=== PATIENT | female | born 1955 | race Caucasian/White ===

== ENCOUNTER → 2019-02-10 14:03 | Outpatient (CLI) | payer BC, SELFPAY ==
--- NOTE | 2019-02-10 14:05 | DI.RAD.S_ITS ---
PROCEDURE: XR CERVICAL SPINE 4V OR 5V INDICATIONS: neck pain TECHNIQUE: 5 views of the cervical spine acquired. COMPARISON: None. FINDINGS: Bones: No fractures or dislocations to the T1 level. Oblique images demonstrate no bony foraminal stenoses. Degenerative disc disease is moderate at C3-4 and moderately severe at C5-6 and C6-7. Moderate bilaterally symmetric foraminal stenosis is present at these 3 levels. Soft tissues: No prevertebral soft tissue swelling. IMPRESSION: No trauma. Degenerative disc disease is moderate to moderately severe over the cervical spine and best seen at C3-4, C5-6, and C6-7. The oblique views show moderate foraminal stenosis at C3-4, C5-6, and C6-7 symmetric bilaterally. Dictated by: Facundo Rand M.D. on 02/10/2019 at 15:06 Approved by: Facundo Rand M.D. on 02/10/2019 at 15:08
--- NOTE | 2019-02-10 14:05 | DI.RAD.S_ITS ---
PROCEDURE: XR LUMBAR SPINE MIN 4V INDICATIONS: back pain TECHNIQUE: 5 views were obtained to include both obliques. COMPARISON: [facility], RF, LUMBAR TRANSLAMINAR, 05/31/2017, 12:40. [facility], RF, LUMBAR FACET, 02/15/2017, 12:26. [facility], CR, SPINE LUMB MIN 4VW, 01/21/2017, 15:51. [facility] [place], CR, SPINE LUMB MIN 4VW, 09/01/2016, 16:13. FINDINGS: Bones: On nonrib-bearing vertebrae are present. There is normal bony alignment. No vertebral body compression fractures. No suspicious bony lesions. Quality of visualization is limited by very large body habitus. Note is made of mild degenerative disc disease at the L4-5 level where moderate such degeneration can be seen at L5-S1 there is a moderate degree of degenerative disc disease also. 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 No significant subluxation is associated. Soft tissues: Overlying bowel gas pattern is normal. No suspicious soft tissue calcifications. Oblique images: No pars defects. IMPRESSION: Degenerative disc disease is moderate over the lower lumbosacral spine, without evidence of prior fracture or development of subluxation. Dictated by: Facundo Rand M.D. on 02/10/2019 at 15:04 Approved by: Facundo Rand M.D. on 02/10/2019 at 15:05
--- NOTE | 2019-02-10 14:05 | DI.RAD.S_ITS ---
PROCEDURE: XR KNEE STANDING BI INDICATIONS: bilateral knee pain TECHNIQUE: 3 views of the left knee, and 3 views of the right knee. COMPARISON: None. FINDINGS: Bones: No acute fractures or dislocations. Patellar alignment is normal on the sunrise view. No suspicious bony lesions. Joint spaces appear normal with weightbearing. Soft tissues: No knee joint effusions. No suspicious soft tissue calcification. IMPRESSION: Moderate medial compartment joint space narrowing, no fracture or traumatic subluxation is found. Dictated by: Facundo Rand M.D. on 02/10/2019 at 15:05 Approved by: Facundo Rand M.D. on 02/10/2019 at 15:06
[2019-02-10 15:00] LABS: Add Manual Diff / Slide Review NO; Basophils Absolute Auto 100 /uL (0-100); Basophils Percent Auto 0.6 % (0-2); Eosinophils Absolute Auto 100 /uL (0-450); Eosinophils Percent Auto 0.8 % (2-4); Hematocrit 44.2 % (36-46); Hemoglobin 14.8 g/dL (12.0-16.0); Lymphocytes Absolute Auto 1700 /uL (1100-4500); Lymphocytes Percent Auto 19.2 % (25-40); Mean Corpuscular HGB Conc 33.6 % (30-36); Mean Corpuscular Hemoglobin 28.5 PG (26-34); Mean Corpuscular Volume 85.1 fL (80-100); Monocytes Absolute Auto 600 /uL (0-900); Monocytes Percent Auto 6.6 % (3-14); Neutrophils Absolute Auto 6600 /uL (1500-7000); Neutrophils Percent Auto 72.8 % (50-75); Platelet Count 329 X10^3/uL (150-400); Red Blood Cell Count 5.19 X10^6/uL (4.0-5.2); Red Cell Distribution Width 12.9 % (11.6-14.8); White Blood Cell Count 9.1 X10^3/uL (4.5-11.0)
[2019-02-10 15:18] LABS: Erythrocyte Sedimentation Rate 42 MM/HR (0-20)
[2019-02-10 15:42] LABS: Alanine Aminotransferase 18 IU/L (9-52); Albumin 4.9 g/dL (3.5-5.0); Albumin Globulin Ratio 1.4 (1.0-2.8); Alkaline Phosphatase 100 U/L (38-126); Aspartate Aminotransferase 36 IU/L (14-36); BUN Creatinine Ratio 22.5 (6-22); Bilirubin Total 0.4 mg/dL (0.2-1.3); Blood Urea Nitrogen 18 mg/dL (7-17); C-Reactive Protein Quant 1.7 mg/dL (<1.0); Calcium 10.1 mg/dL (8.4-10.2); Carbon Dioxide 28 mmol/L (22-32); Chloride 100 mmol/L (98-107); Estimated Glomerular Filt Rate > 60.0 mL/min (>60); Globulin 3.4 g/dL (1.7-4.1); Glucose 109 mg/dL (80-110); HEMOLYSIS < 15 (0-50); Potassium 3.9 mmol/L (3.4-5.1); Sodium 139 mmol/L (137-145); Total Protein 8.3 g/dL (6.3-8.2)
[2019-02-10 15:56] LABS: Vitamin D 25 Hydroxy (D3) 31.3 ng/mL (30.0-100.0)
[2019-02-12 17:57] LABS: ANA Pattern Speckled; ANA Screen, IFA Positive (Negative)
== END ==
PROVIDERS: PCP Internal Medicine; Visit Provider Physical Medicine & Rehabilitation
DX: M50.11 Cervical disc disorder with radiculopathy, high cervical region (principal); M48.02 Spinal stenosis, cervical region; M54.9 Dorsalgia, unspecified; M25.562 Pain in left knee; M25.561 Pain in right knee; M47.817 Spondylosis without myelopathy or radiculopathy, lumbosacral region; M47.816 Spondylosis without myelopathy or radiculopathy, lumbar region; M51.36 Other intervertebral disc degeneration, lumbar region; M51.37 Other intervertebral disc degeneration, lumbosacral region
CPT/HCPCS: 36415; 72050; 72110; 73565; 80053; 82306; 84443; 85025; 85651; 86038; 86140

== ENCOUNTER 2024-10-17 09:38 | Emergency (ER) | payer MEDICARE, BC, SELFPAY ==
[2024-10-17] VITALS (14 sets, daily range): BP systolic 141–176; BP diastolic 64–79; PULSE 88–100; RESP 11–37; TEMP 37; O2SAT 97–100; BMI 48.6
--- NOTE | 2024-10-17 09:48 | DI.RAD.S_ITS ---
PROCEDURE: XR CHEST 1V INDICATIONS: chest pain TECHNIQUE: One view of the chest was acquired. COMPARISON: None. FINDINGS: Surgical changes and devices: None. Lungs and pleura: Lungs are clear. No pleural effusions or pneumothorax. Mediastinum: Mediastinal contours appear normal. Heart size is normal. Bones and chest wall: No suspicious bony lesions. Overlying soft tissues appear unremarkable. IMPRESSION: No acute cardiopulmonary pathology. Dictated by: Levar Bain M.D. on 10/17/2024 at 10:21 Approved by: Levar Bain M.D. on 10/17/2024 at 10:21
--- NOTE | 2024-10-17 09:54 | EKG_ITS ---
[address] [address] Test Date: 2024-10-17 Pat Name: Nuzhat Puentes Department: Room: Gender: Female Pathology Technician: RAMSES : 1955 Requested By: Order Number: [id number] Reading MD: Cheng Alcantara Measurements Intervals [place] Rate: 90 P: 59 CO: 160 QRS: -2 QRSD: 94 T: 83 QT: 354 QTc: 433 Interpretive Statements Normal sinus rhythm Minimal voltage criteria for LVH, may be normal variant ( Grant product ) Inferior infarct , age undetermined Possible Anterior infarct , age undetermined Electronically Signed On 10-17-2024 17:51:37 PST by Cheng Alcantara
[2024-10-17 10:32] LABS: INR 1.1 (0.9-1.3); Prothrombin Time 12.1 SECONDS (9.4-12.5)
[2024-10-17 10:35] LABS: PTT Partial Thromboplastin Tim 37 SECONDS (25.1-36.5)
[2024-10-17 10:37] LABS: Alanine Aminotransferase 23 IU/L (<35); Albumin 4.3 g/dL (3.5-5.0); Albumin Globulin Ratio 1.6 (1.0-2.8); Alkaline Phosphatase 104 U/L (38-126); Aspartate Aminotransferase 29 IU/L (14-36); BUN Creatinine Ratio 32.2 (6-22); Bilirubin Total 0.4 mg/dL (0.2-1.3); Blood Urea Nitrogen 29 mg/dL (7-17); Carbon Dioxide 29 mmol/L (22-32); Chloride 98 mmol/L (98-107); Creatine Kinase 40 U/L (30-135); Estimated Glomerular Filt Rate > 60 mL/min (>60); Globulin 2.7 g/dL (1.7-4.1); Glucose 124 mg/dL (80-110); HEMOLYSIS < 15 (0-50); Lipase 438 U/L (23-300); Magnesium 1.9 mg/dL (1.6-2.3); Potassium 3.8 mmol/L (3.4-5.1); Sodium 133 mmol/L (137-145)
[2024-10-17 10:38] LABS: Add Manual Diff / Slide Review NO; Basophils Absolute Auto 100 /uL (0-100); Eosinophils Absolute Auto 700 /uL (0-450); Eosinophils Percent Auto 6.8 % (2-4); Hematocrit 37.7 % (36-46); Hemoglobin 12.8 g/dL (12.0-16.0); Lymphocytes Absolute Auto 1200 /uL (1100-4500); Lymphocytes Percent Auto 10.8 % (25-40); Mean Corpuscular Hemoglobin 28.9 PG (26-34); Mean Corpuscular Volume 84.9 fL (80-100); Monocytes Absolute Auto 600 /uL (0-900); Monocytes Percent Auto 5.8 % (3-14); Neutrophils Absolute Auto 8100 /uL (1500-7000); Neutrophils Percent Auto 75.6 % (50-75); Platelet Count 270 X10^3/uL (150-400); Red Blood Cell Count 4.44 X10^6/uL (4.0-5.2); Red Cell Distribution Width 13.1 % (11.6-14.8); White Blood Cell Count 10.8 X10^3/uL (4.5-11.0)
--- NOTE | 2024-10-17 10:42 | EKG_ITS ---
[place] [address] [address] [place] [id number] Test Date: 2024-10-17 Pat Name: Nuzhat Puentes Department: Room: Gender: Female Foot Tender: FREEMAN : 1955 Requested By: Order Number: [id number] Reading MD: Cheng Alcantara Measurements Intervals [place] Rate: 92 P: 56 TX: 168 QRS: -41 QRSD: 136 T: 89 QT: 390 QTc: 482 Interpretive Statements Normal sinus rhythm Left axis deviation Left bundle branch block Electronically Signed On 10-17-2024 17:51:42 PST by Cheng Alcantara
[2024-10-17 10:48] LABS: NT-proBNP (BNP-Adult 18+) 53 pg/mL (<125); Troponin I < 0.012 ng/mL (0.01-0.034)
--- NOTE | 2024-10-17 10:48 | ED_ITS ---
HPI - Chest Pain General Chief Complaint: Chest Pain Stated Complaint: chest px Time Seen by Provider: 10/17/24 10:48 Source: patient Mode of arrival: Ambulatory Limitations: no limitations History of Present Illness HPI narrative: 69-year-old female without history of known coronary artery disease, has had a previous concern about left bundle branch block on some prior EKG, saw vat house supervisor Dr. Mcnulty in follow up and this was apparently not confirmed, unclear if she has intermittent left bundle branch block, this morning had some shortness of breath without chest pain, also some nasal congestion, both nasal congestion and the shortness of breath seemed to go away at the same time as she arrived here. Currently without any chest pain or shortness of breath symptoms. Feels improved. No fevers or chills. Denies any swelling or pain to her legs. Denies history of blood clots to legs or lungs. Related Data Home Medications Medication Instructions Recorded Confirmed capsaicin 0.025 % topical patch 1 patch topical BID PRN 02/10/19 03/13/19 (Salonpas-Hot) ibuprofen-diphenhydramine citrate 1 cap PO BEDTIME 02/10/19 03/13/19 200 mg-38 mg tablet (Advil PM) lisinopril 5 mg tablet 5 mg PO DAILY 02/10/19 03/13/19 magnesium hydroxide 400 mg (170 mg mg PO 02/10/19 03/13/19 magnesium) chewable tablet Allergies Allergy/AdvReac Type Severity Reaction Status Date / Time No Known Drug Allergies Allergy Verified 10/17/24 09:48 Patient History Social History Smoking Status: Unknown if ever smoked Smoking Status: Unknown if ever smoked Exam Narrative Exam Narrative: GENERAL: Well-developed patient, in mild distress. HEAD: Atraumatic. Normocephalic. EYES: Pupils equal round and reactive. Extraocular motions intact. No scleral icterus. No injection or drainage. ENT: Nose without bleeding, purulent drainage. Throat without erythema, tonsillar hypertrophy or exudate. Airway patent. NECK: Trachea midline. Non tender CARDIOVASCULAR: Regular rate and rhythm without murmurs, gallops, or rubs. RESPIRATORY: Clear to auscultation. Breath sounds equal bilaterally. No wheezes, rales, or rhonchi. GASTROINTESTINAL: Abdomen soft, non-tender, nondistended. EXTREMITIES: No edema or joint tenderness. BACK: Nontender without deformity or crepitance. No flank tenderness. NEURO: AOx3. Motor functions grossly nonfocal SKIN: No rash or erythema of visible areas Initial Vital Signs Initial Vital Signs: Vital Signs Temperature 98.6 F 10/17/24 09:40 Pulse Rate 96 H 10/17/24 09:40 Respiratory Rate 15 10/17/24 09:40 Blood Pressure 176/79 H 10/17/24 09:40 Pulse Oximetry 100 10/17/24 09:40 Oxygen Delivery Method Room Air 10/17/24 09:40 Course Orders Ordered: ED Orders 10/17/24 10:42 EKG-12 Lead Routine 10/17/24 12:05 Trop I [Troponin I] Stat Discontinued Medications Aspirin (Aspirin 81 Mg Chew Tab) 324 mg PO NOW ONE Stop: 10/17/24 09:49 Last Admin: 10/17/24 11:16 Dose: Not Given Documented By: AB Vital Signs Vital signs: Vital Signs - 8 hr 10/17/24 11:10 10/17/24 11:12 10/17/24 11:12 Pulse Rate 96 H 94 H Respiratory Rate 22 Blood Pressure 155/73 H Pulse Oximetry 98 99 Oxygen Delivery Method 10/17/24 11:30 10/17/24 11:30 10/17/24 12:00 Pulse Rate 100 H 98 H Respiratory Rate 24 26 H Blood Pressure 164/71 H Pulse Oximetry 99 98 Oxygen Delivery Method Room Air 10/17/24 12:01 10/17/24 12:01 10/17/24 12:30 Pulse Rate 98 H 96 H Respiratory Rate 37 H 18 Blood Pressure 141/67 H Pulse Oximetry 97 99 Oxygen Delivery Method Room Air Room Air 10/17/24 12:56 10/17/24 12:56 10/17/24 13:00 Pulse Rate 95 H 96 H Respiratory Rate 19 Blood Pressure 155/67 H Pulse Oximetry 99 99 Oxygen Delivery Method 10/17/24 13:00 Pulse Rate Respiratory Rate Blood Pressure 143/64 H Pulse Oximetry Oxygen Delivery Method MDM - Chest Pain Lab Data Attestation: I reviewed the patient's lab results. Lab results narrative: White blood cell count 38830, hemoglobin 12.8, platelets [id number] adequate. Sodium 133 mildly low, potassium normal, BUN 29 with creatinine 0.9, glucose 124. Lipase 438 mildly elevated. Liver functions unremarkable. 10/17/24 10:00 10/17/24 10:00 Labs: Lab Results 10/17/24 10/17/24 Range/Units 10:00 12:05 WBC 10.8 (4.5-11.0) X10^3/uL RBC 4.44 (4.0-5.2) X10^6/uL Hgb 12.8 (12.0-16.0) g/dL Hct 37.7 (36-46) % MCV 84.9 (80-100) fL MCH 28.9 (26-34) PG MCHC 34.0 (30-36) % RDW 13.1 (11.6-14.8) % Plt Count 270 (150-400) X10^3/uL Neut % (Auto) 75.6 H (50-75) % Lymph % (Auto) 10.8 L (25-40) % [place] % (Auto) 5.8 (3-14) % Eos % (Auto) 6.8 H (2-4) % Baso % (Auto) 1.0 (0-2) % Neut # (Auto) 8100 H (6992-9385) /uL Lymph # (Auto) 1200 (3544-8258) /uL [place] # (Auto) 600 (0-900) /uL Eos # (Auto) 700 H (0-450) /uL Baso # (Auto) 100 (0-100) /uL PT 12.1 (9.4-12.5) SECONDS INR 1.1 (0.9-1.3) APTT 37 H (25.1-36.5) SECONDS Sodium 133 L (137-145) mmol/L Potassium 3.8 (3.4-5.1) mmol/L Chloride 98 (98-107) mmol/L Carbon Dioxide 29 (22-32) mmol/L BUN 29 H (7-17) mg/dL Creatinine 0.90 (0.52-1.04) mg/dL Estimated GFR > 60 (>60) mL/min BUN/Creatinine Ratio 32.2 H (6-22) Glucose 124 H (80-110) mg/dL Calcium 10.0 (8.4-10.2) mg/dL Magnesium 1.9 (1.6-2.3) mg/dL Total Bilirubin 0.4 (0.2-1.3) mg/dL AST 29 (14-36) IU/L ALT 23 (<35) IU/L Alkaline Phosphatase 104 (38-126) U/L Total Creatine Kinase 40 (30-135) U/L Troponin I < 0.012 < 0.012 (0.01-0.034) ng/mL NT-Pro-B Natriuret Pep 53 (<125) pg/mL Total Protein 7.0 (6.3-8.2) g/dL Albumin 4.3 (3.5-5.0) g/dL Globulin 2.7 (1.7-4.1) g/dL Albumin/Globulin Ratio 1.6 (1.0-2.8) Lipase 438 H (23-300) U/L Imaging Data Chest x-ray: Radiologist's Impression: [address] [address] XRay Report Signed Patient: Nuzhat Puentes MR#: [id number] : 1955 Acct:[id number] Age/Sex: 69 / F Date of Service: 10/17/24 Loc: ED Accession Number: [id number] Procedure: XR chest 1V Ordering Provider: Arian Singh MD PROCEDURE: XR CHEST 1V INDICATIONS: chest pain TECHNIQUE: One view of the chest was acquired. COMPARISON: None. FINDINGS: Surgical changes and devices: None. Lungs and pleura: Lungs are clear. No pleural effusions or pneumothorax. Mediastinum: Mediastinal contours appear normal. Heart size is normal. Bones and chest wall: No suspicious bony lesions. Overlying soft tissues appear unremarkable. IMPRESSION: No acute cardiopulmonary pathology. Dictated by: Levar Bain M.D. on 10/17/2024 at 10:21 Approved by: Levar Bain M.D. on 10/17/2024 at 10:21 ECG Data Attestation: I personally reviewed and interpreted this ECG as follows: Interpretation: 0954, normal sinus rhythm with rate 90, no obvious ST segment elevation or depression changes. NV 160, QRS 94, QTC 433. 1042, normal sinus rhythm with rate 92, left bundle branch block appearance. NV 168, QRS 136, QTC 482. MDM Narrative Medical decision making narrative: 69-year-old female reports history of possible left bundle branch block, concern in the past, apparently not found on a subsequent EKG, unclear if his perhaps intermittent, had shortness of breath this morning along with nasal congestion, after triage she had resolution of her symptoms both nasal congestion and shortness of breath, did not have any chest discomfort. No diaphoresis or nausea. Initial screening EKG normal sinus rhythm, subsequent EKG showed left bundle branch block in context of normal sinus rhythm, on monitor seems to have intermittent wide and narrow complex rhythm, no tachycardia. Patient has no symptoms during these events. Screening troponin negative. We will wait for interval troponin. If negative anticipate follow up with her vat house supervisor Dr. Mcnulty for further evaluation as an outpatient. Chest x-ray unremarkable. Repeat troponin negative. On monitor patient does seem to have wide complex rhythm, no tachycardia. We will consult on-call Cardiology regarding significance of intermittent left bundle branch block that is apparently currently asymptomatic Case discussed with on-call cardiology Dr. Gomez, asymptomatic intermittent left bundle branch block, history of left bundle-branch block in the past, no further workup for now, follow up with your cardiology Dr. Mcnulty as planned. Discharge Plan Departure Patient Disposition: Home Clinical Impression: Shortness of breath, Nasal congestion, Left bundle-branch block, unspecified Activity Restrictions/Additional Instructions: Some shortness of breath this morning that seemed to get better, at about the time that your nasal congestion seemed to get better, if they were related. Chest x-ray without acute changes. Initial EKG showed a narrow complex sinus rhythm, but on the monitor you seemed to develop a wide complex rhythm, repeat EKG showed left bundle branch block. You were not symptomatic with this change in complex. You had had concern about left bundle branch block in the past, had seen your vat house supervisor Dr. Mcnulty who apparently was unable to confirm its presence, this is likely intermittent and seems that it might be asymptomatic. Your blood tests tonight did not show any evidence of the electrolyte disorder, serial blood tests not suggestive of heart attack. Case was discussed tonight with on-call local vat house supervisor Dr. Gomez, who thought that you could be discharged home now with no further workup here, further follow up as an outpatient with your own vat house supervisor. Copies given of your EKGs here to help document the presence of left bundle branch block concern. Continue your chronic regular medications for now. Consider adding 1 oral aspirin daily until further evaluated by your vat house supervisor Dr. Mcnulty. Follow up with your vat house supervisor Dr. Mcnulty. Return to this/nearest emergency department for any change worsening symptoms or any concerns prior Prescriptions: No Action capsaicin [Salonpas-Hot] 0.025 % adhesive patch,medicated 1 patch TOP BID PRN lisinopril 5 mg tablet 5 mg PO DAILY ibuprofen-diphenhydramine cit [Advil PM] 200-38 mg tablet 1 cap PO BEDTIME magnesium hydroxide 400 mg (170 mg) tablet,chewable PO Referrals: Miscellaneous,MD Lissette [Primary Care Provider] - Aline Gomez MD [Physician] - Stand Alone Forms: Patient Portal/API/Survey
[2024-10-17 12:35] LABS: Troponin I < 0.012 ng/mL (0.01-0.034)
== END 2024-10-17 13:18 | disposition home or self-care (01) ==
PROVIDERS: Emergency Provider Emergency Medicine
DX: R06.02 Shortness of breath (principal); R09.81 Nasal congestion; I44.7 Left bundle-branch block, unspecified
CPT/HCPCS: 36415; 71045; 80053; 82550; 83690; 83735; 83880; 84484; 85025; 85610; 85730; 93005; 99284; 99285

== ENCOUNTER 2025-01-10 15:51 | Emergency (ER) | payer BC, MEDICARE, SELFPAY ==
[2025-01-10 15:58] VITALS: BP 177/99; PULSE 123; RESP 14; TEMP 36.6; O2SAT 97; BMI 49.9
[2025-01-10 16:36] LABS: Add Manual Diff / Slide Review NO; Basophils Absolute Auto 100 /uL (0-100); Basophils Percent Auto 0.6 % (0-2); Eosinophils Absolute Auto 100 /uL (0-450); Eosinophils Percent Auto 1.3 % (2-4); Hematocrit 40.3 % (36-46); Hemoglobin 13.5 g/dL (12.0-16.0); Lymphocytes Absolute Auto 1200 /uL (1100-4500); Lymphocytes Percent Auto 10.2 % (25-40); Mean Corpuscular HGB Conc 33.6 % (30-36); Mean Corpuscular Hemoglobin 28.5 PG (26-34); Mean Corpuscular Volume 84.9 fL (80-100); Monocytes Absolute Auto 600 /uL (0-900); Monocytes Percent Auto 4.8 % (3-14); Neutrophils Absolute Auto 9500 /uL (1500-7000); Neutrophils Percent Auto 83.1 % (50-75); Platelet Count 306 X10^3/uL (150-400); Red Blood Cell Count 4.75 X10^6/uL (4.0-5.2); Red Cell Distribution Width 13.1 % (11.6-14.8); White Blood Cell Count 11.4 X10^3/uL (4.5-11.0)
[2025-01-10 16:46] LABS: BUN Creatinine Ratio 24.4 (6-22); Blood Urea Nitrogen 22 mg/dL (7-17); Calcium 10.2 mg/dL (8.4-10.2); Carbon Dioxide 29 mmol/L (22-32); Chloride 98 mmol/L (98-107); Estimated Glomerular Filt Rate > 60 mL/min (>60); Glucose 136 mg/dL (80-110); HEMOLYSIS < 15 (0-50); Potassium 4.4 mmol/L (3.4-5.1); Sodium 135 mmol/L (137-145)
--- NOTE | 2025-01-10 18:16 | ED_ITS ---
HPI - Female Genitourinary General Chief complaint: Vaginal Bleeding Stated complaint: vaginal bleeding post menopause Time Seen by Provider: 01/10/25 18:16 Source: patient Mode of arrival: Ambulatory History of Present Illness HPI Narrative: 69-year-old female without any significant past medical history presents to the emergency department from home for evaluation of postmenopausal vaginal bleeding. She states that she has been 10 years postmenopausal, she states that today she woke up started noticing some very minor cramping and noticed some bright blood spotting, she states that she is not actively bleeding just having some intermittent cramps, she rates it /, she states that she does have a history of fibroids, she states that she has not on any progesterone. Not on any blood thinners. She states that she went to walk-in clinic instructed come into the ED for further evaluation treatment. At time of evaluation patient stating that she has not having any active bleeding only mild pelvic cramping no radiation nothing making it better or worse no trauma no falls, she has not complaining of any other symptoms such as headache visual disturbances chest pain shortness breath fever chills nausea vomiting abdominal pain or any other GI/ symptoms at this time. She states that she does not currently have an OBGYN. Related Data Home Medications Medication Instructions Recorded Confirmed capsaicin 0.025 % topical patch 1 patch topical BID PRN 02/10/19 03/13/19 (Salonpas-Hot) ibuprofen-diphenhydramine citrate 1 cap PO BEDTIME 02/10/19 03/13/19 200 mg-38 mg tablet (Advil PM) lisinopril 5 mg tablet 5 mg PO DAILY 02/10/19 03/13/19 magnesium hydroxide 400 mg (170 mg mg PO 02/10/19 03/13/19 magnesium) chewable tablet Allergies Allergy/AdvReac Type Severity Reaction Status Date / Time No Known Drug Allergies Allergy Verified 01/10/25 16:02 Review of Systems Review of Systems Narrative: General: Denies fever, chills, weight loss HEENT: Denies headache, eye drainage, eye irritation, head trauma, sore throat, voice change Cardiovascular: Denies any chest pain, palpitations, tachycardia Respiratory: Denies any shortness of breath, cough, wheeze, stridor GI/: Positive vaginal bleeding, Denies any abdominal pain, nausea, vomiting, diarrhea, bright red blood per rectum, melanotic stools, urinary frequency, urinary retention, dysuria, hematuria MSK: Denies any joint pain, muscle pains, swelling Skin: Denies any rashes, lesions, discoloration Neuro: Denies any headache, lightheadedness, dizziness, fainting, weakness Psych: Denies SI/HI Exam Narrative Exam Narrative: General: Cooperative, comfortable, well-developed, not in acute distress HEENT: Normocephalic, atraumatic, PERRLA, normal sclera, eyelids normal, Neck: Active full range of motion, atraumatic Chest: Normal to inspection, negative crepitus, no overlying erythema ecchymosis Respiratory: Normal respiratory effort, not in acute respiratory distress, clear to auscultation bilaterally negative cough, wheeze, tachypnea, rhonchi, rales Cardiology: Regular rate rhythm negative gallop, murmur, rubs GI/: Normal to inspection, soft, nonrigid, no tenderness to palpation, exam deferred MSK: Full range of active range of motion of all 4 extremities, atraumatic Skin: No rashes lesions noted Neuro: Alert awake oriented x3, moves all 4 extremities spontaneously, cranial nerves intact, able to answer all questions appropriately follows commands appropriately Psych: Cooperative, negative suicidal or homicidal ideations Initial Vital Signs Initial Vital Signs: Vital Signs Temperature 97.8 F 01/10/25 15:58 Pulse Rate 123 H 01/10/25 15:58 Respiratory Rate 14 01/10/25 15:58 Blood Pressure 177/99 H 01/10/25 15:58 Pulse Oximetry 97 01/10/25 15:58 Oxygen Delivery Method Room Air 01/10/25 15:58 Course Orders Ordered: ED Orders 01/10/25 16:16 Basic Metabolic Panel Stat Complete Blood Count AUTO DIFF Stat Type and Screen Stat 01/10/25 18:17 US pelvic complete Stat 01/10/25 18:49 Urine Culture Stat Urine Microscopic Stat Vital Signs Vital signs: Vital Signs - 8 hr 01/10/25 15:58 Temperature 97.8 F Pulse Rate 123 H Respiratory Rate 14 Blood Pressure 177/99 H Pulse Oximetry 97 Oxygen Delivery Method Room Air MDM - Female Genitourinary Differential Diagnosis Differential diagnosis: Likely urinary tract infection and other (Postmenopausal bleeding, endometriosis,) Lab Data 01/10/25 16:16 01/10/25 16:16 Labs: Lab Results 01/10/25 01/10/25 Range/Units 16:16 18:49 WBC 11.4 H (4.5-11.0) X10^3/uL RBC 4.75 (4.0-5.2) X10^6/uL Hgb 13.5 (12.0-16.0) g/dL Hct 40.3 (36-46) % MCV 84.9 (80-100) fL MCH 28.5 (26-34) PG MCHC 33.6 (30-36) % RDW 13.1 (11.6-14.8) % Plt Count 306 (150-400) X10^3/uL Neut % (Auto) 83.1 H (50-75) % Lymph % (Auto) 10.2 L (25-40) % [place] % (Auto) 4.8 (3-14) % Eos % (Auto) 1.3 L (2-4) % Baso % (Auto) 0.6 (0-2) % Neut # (Auto) 9500 H (7059-6864) /uL Lymph # (Auto) 1200 (9493-9460) /uL [place] # (Auto) 600 (0-900) /uL Eos # (Auto) 100 (0-450) /uL Baso # (Auto) 100 (0-100) /uL Sodium 135 L (137-145) mmol/L Potassium 4.4 (3.4-5.1) mmol/L Chloride 98 (98-107) mmol/L Carbon Dioxide 29 (22-32) mmol/L BUN 22 H (7-17) mg/dL Creatinine 0.90 (0.52-1.04) mg/dL Estimated GFR > 60 (>60) mL/min BUN/Creatinine Ratio 24.4 H (6-22) Glucose 136 H (80-110) mg/dL Calcium 10.2 (8.4-10.2) mg/dL Urine RBC 10-30/hpf H (0-5/HPF) Urine WBC 5-10/hpf H (0-5/HPF) Ur Squamous Epith Cells 5-10 /hpf H (0-5/HPF) Ur Transition Epith Cell 1-5/hpf (0-5/HPF) Ur Renal Epithelial Cell 1-5/hpf H (0-1/HPF) Amorphous Sediment 1+ Urine Bacteria Moderate (10-30) H (None) Urine Yeast 1-5/hpf H (None) Vol Urine Centrifuged 10ml (spun) Blood Type O Positive Antibody Screen Negative Urine Dip Bedside Urine Glucose Negative Bedside Urine Bilirubin - Negative Bedside Urine Ketone - Negative Urine Specific [place] 1.010 Bedside Urine Occult Blood +++ Bedside Urine pH 6.0 Bedside Urine Protein - Negative Bedside Urine Urobilinogen - Negative Bedside Urine Nitrite - Negative Bedside Urine Leukocytes +/- 15 Esterase Imaging Data US - VIDEO CAMERA OPERATOR: Radiologist's Impression: [address] [address] Ultrasound Report Signed Patient: Nuzhat Puentes MR#: [id number] : 1955 Acct:[id number] Age/Sex: 69 / F Date of Service: 01/10/25 Loc: ED Accession Number: [id number] Procedure: US pelvic complete Ordering Provider: Rodrigo Geronimo D.O. PROCEDURE: US PELVIC COMPLETE INDICATIONS: Postmenopausal vaginal bleeding TECHNIQUE: Real-time scanning was performed of the pelvic organs, with image documentation. Additional endovaginal scanning was necessary due to incomplete visualization of the adnexal and endometrial structures by transabdominal scanning. COMPARISON: None. FINDINGS: Uterus: Uterus is anteverted and normal in size at 9.2 x 5.1 x 3.0 cm. The myometrium is heterogeneous. The endometrium measures 24.2 mm combined thickness. Right anterior intramural fibroid measuring 3.4 x 3.0 x 3.0 cm. Ovaries: The ovaries are not seen. Other: No pathologic free abdominal or pelvic fluid. IMPRESSION: Endometrium is significantly thickened measuring 24 mm. Recommend endometrial sampling for further evaluation. Intramural fibroid measuring 3.4 cm. The ovaries are not seen. We strive to produce accurate, complete, and clear reports of imaging services. To assist us in improving patient care, this report was composed using standard report templates and voice recognition software. Therefore, it may contain abnormal punctuation, insertions and/or omissions. Occasional wrong-word or sound-alike substitutions may occur. Though we review the report and make efforts to correct it, we do recommend that the report be read carefully in proper context to recognize any text inaccuracies. MDM Narrative Medical decision making narrative: 69-year-old female with past medical history of hypertension presents to the emergency department from home for evaluation of postmenopausal bleeding patient has been postmenopausal 10 years had sudden onset minor pelvic cramping intermittent nature with bright red blood spotting earlier today. She states that she is only having very minor spotting, not on any blood thinners no traumas or falls, urinalysis not consistent with acute urinary tract infection, patient had pelvic ultrasound performed that did show endometrial thickening along with the intramural fibroid. Patient was instructed to follow up with OBGYN for further evaluation treatment and biopsy given her postmenopausal bleeding. She was given strict return precautions she verbalized understanding of this and agrees to being discharged home with outpatient follow up Discharge Plan Departure Patient Disposition: Home Clinical Impression: Abnormal vaginal bleeding in postmenopausal patient Activity Restrictions/Additional Instructions: Please follow up with OBGYN for a biopsy given your postmenopausal bleeding Please return to the emergency department for worsening symptoms or worsening bleeding Please read the discharge instructions sheet carefully and bring all papers to all doctor follow-up visits, as it may contain information that your doctor may want to see. Disease processes change and evolve, if your symptoms worsen or if you develop any new symptoms that are concerning to you please return for evaluation. Your evaluation today does not show any evidence of any life- threatening/serious illnesses requiring admission to the hospital or surgery. Please follow-up with your doctor for re-evaluation in approximately 1 day. Seek immediate medical attention for any worrisome symptoms. *If you do not have a primary care provider please contact the [facility] Resource line at [phone]. They will ask some questions about your medical history and help get you set up with a doctor in the community. Prescriptions: No Action capsaicin [Salonpas-Hot] 0.025 % adhesive patch,medicated 1 patch TOP BID PRN lisinopril 5 mg tablet 5 mg PO DAILY ibuprofen-diphenhydramine cit [Advil PM] 200-38 mg tablet 1 cap PO BEDTIME magnesium hydroxide 400 mg (170 mg) tablet,chewable PO Referrals: Miscellaneous,Doctor, [Primary Care Provider] - Lizbeth Billy DO [Physician] - As soon as possible (Postmenopausal bleeding) Stand Alone Forms: Patient Portal/API/Survey
[2025-01-10 19:22] LABS: Bacteria Urine Moderate (10-30); RBC Urine 10-30/HPF (0-5/HPF); Urine Volume 10mL (spun); WBC Urine 5-10/HPF (0-5/HPF)
[2025-01-10 19:23] LABS: Amorphous Sediment Urine 1+; Renal Epithelial Cells Urine 1-5/HPF (0-1/HPF); Squamous Epithelial Cell Urine 5-10 /HPF (0-5/HPF); Transitional Epi Cells Urine 1-5/HPF (0-5/HPF)
[2025-01-10] MEDS: KETOROLAC 30 MG/ML VIAL IM (20:20)
[2025-01-10 20:22] VITALS: BP 169/82; PULSE 105; RESP 18; O2SAT 95
== END 2025-01-10 20:25 | disposition home or self-care (01) ==
PROVIDERS: Emergency Medicine; Emergency Provider Student in an Organized Health Care Education/Training Program
DX: N95.0 Postmenopausal bleeding (principal)
CPT/HCPCS: 36415; 76830; 76856; 80048; 81003; 81015; 85025; 86850; 86900; 86901; 87086; 99283; 99284; J1885

== ENCOUNTER 2025-02-19 13:25 | Day surgery (SDC) | payer BC, MEDICARE, SELFPAY ==
[2025-02-19] VITALS (7 sets, daily range): BP systolic 136–157; BP diastolic 44–89; PULSE 84–105; RESP 10–18; TEMP 36.3–36.8; O2SAT 99–100; BMI 50.3
--- NOTE | 2025-02-19 | PATH_ITS ---
[facility] Accession Number: [id number] No. of containers..01 Tissue . 01 Material submitted: . endometrium - ENDOMETRIAL POLYP . 01 Diagnosis: ENDOMETRIAL POLYP: Disordered proliferative endometrium; negative for endometrioid intraepithelial neoplasia or malignancy. Some endometrial fragments demonstrate prominent vessels, suggestive of polyp, if clinical and imaging studies are concordant. [place] 02/22/2025 1140 Local . 01 Electronically signed: . Radha Thomas MD, Pathologist NPI- [id number] . 01 Gross description: . Received in formalin with two identifiers and endometrial polyp, are multiple taylor soft tissue fragments admixed with hemorrhagic material received in a collection sock aggregating to 3.2 x 2.9 x 0.5 cm. Filtered and submitted entirely in A1-A2. ([id number]) /MRV 02/20/2025 2248 Local . 01 Pathologist provided ICD-10: N95.0, N85.00 . 01 CPT . 149513 Specimen Comment: A courtesy copy of this report has been sent to [phone] Performed at: [address] [address], [place], [place] [id number] MD Allen Kaufman MD Phone: [phone]
[2025-02-19] MEDS: LACTATED RINGERS 1,000 ML 21 ML IV (14:25)
--- NOTE | 2025-02-19 15:26 | P.HPOB_ITS ---
History of Present Illness History of Present Illness Reason for admission: vaginal bleeding Narrative: Nuzhat Puentes is a 69 year old female 4 para 3 with postmenopausal bleeding and endometrial hyperplasia. Endometrial biopsy in the office showed inactive endometrium. Suspect endometrial polyp. 24 mm endometrial lining on ultrasound. [facility] Medical History (Updated 01/25/25 @ 00:00 by ) Closed fracture of cervicotrochanteric section of femur Hypertension Surgical History (Updated 01/15/25 @ 07:40 by Sachi Page MD) [place] teeth extracted H/O laparoscopy Social History household members: spouse Smoking Status: Never smoker Meds Home Medications and Allergies Home Medications Medication Instructions Recorded Confirmed Type hydrochlorothiazide 25 mg tablet 25 mg PO DAILY 01/11/25 02/19/25 History lisinopril 5 mg tablet 25 mg PO DAILY 01/11/25 02/19/25 History metoprolol succinate 50 mg 50 mg PO BID 01/11/25 02/19/25 History tablet,extended release 24 hr rosuvastatin 5 mg tablet (Crestor) 5 mg PO DAILY 01/11/25 02/19/25 History tizanidine 4 mg capsule 4 mg PO BEDTIME PRN Sleep 01/11/25 02/19/25 History ergocalciferol (vitamin D2) 1,000 4,000 unit PO DAILY 02/19/25 02/19/25 History unit capsule Allergies Allergy/AdvReac Type Severity Reaction Status Date / Time No Known Drug Allergies Allergy Verified 02/19/25 14:12 Exam Vital Signs (past 8 hours): - 02/19/25 14:13 Temperature 98.2 F Pulse Rate 105 H Respiratory Rate 18 Blood Pressure 157/89 H Pulse Oximetry 99 Oxygen Delivery Method Room Air Oxygen Delivery Method Room Air Narrative Exam Narrative: HEENT: No thyromegaly, no anterior cervical or supraclavicular lymphadenopathy. Lungs:Clear to auscultation bilaterally, no wheezes. Cardiovascular: Regular rate and rhythm, no murmurs, rubs, or gallops. Abdomen: Well-healed laparoscopy scars. No hepatosplenomegaly. No masses palpable. External genitalia: Normal Vagina: Normal Cervix: Normal Bimanual exam: 9 Week size anteverted uterus. Mobile. Extremities: No edema Assessment & Plan Assessment & Plan narrative: Assessment: 69-year-old 4 para 3 with postmenopausal bleeding and a 24 mm endometrial lining Inactive endometrium on office endometrial biopsy Suspect endometrial polyp Plan: D&C hysteroscopy with possible resection of polyp The risks, benefits, and alternatives to the procedure were explained to the patient. The risks including bleeding, infection, and uterine perforation. She understands these risks and agrees to proceed. A full par Q was held and consent form was signed. Time-Based Coding :: [TOTAL MINUTES] spent with patient and on the chart (including review of chart, obtaining history, exam, reviewing outside data, placing orders, documenting exam and treatment plan, and counseling patient) on [DATE].
--- NOTE | 2025-02-19 15:27 | SUR.OPER ---
Lithotomy on padded OR bed, head on pillow, arms secured on padded arm boards at <90 degrees abduction. Legs secured in padded yellow fins stirrups.
--- NOTE | 2025-02-19 15:30 | PM.PREOP ---
Pre-operative Note Interval Note History & Physical reviewed/Exam performed by Physician: Yes Changes to H&P: No H&P completed within 30 days and has changed as indicated here:: 02/19/25
--- NOTE | 2025-02-19 16:08 | SUR.OPER ---
Lithotomy on padded OR bed, head on pillow, right wrist and forearm supported with gel pad, arms secured on padded arm boards at <90 degrees abduction. Legs secured in padded yellow fins stirrups.
--- NOTE | 2025-02-19 16:29 | PM.GYNOP.1 ---
Operative Date/Time/Diagnoses Date of procedure: 02/19/25 Time of procedure: 16:29 Pre-op diagnosis: Postmenopausal bleeding Endometrial hyperplasia by ultrasound Negative biopsy in the office Post-op diagnosis: same Procedure & Clinicians Procedure: Procedures Operation Date: 02/19/25 15:30 Actual Procedure Side Surgeon p Hysteroscopy D&C with myosure, possible polyp resection Sachi Page MD Indications: 69-year-old 4 para 3 with postmenopausal bleeding and a negative endometrial biopsy. She had a 24 mm endometrial lining on ultrasound. Surgeon: Sachi Page Anesthesia Type: General (LMA) Operative Notes Findings: 9 week size anteverted uterus Arcuate uterus Both fallopian tube ostia observed Large polyp arising from the posterior fundal region of the uterus Closure Type: not applicable Specimen(s): endometrial polyp Estimated blood loss (mL): 3 Blood products transfused: none Procedure in detail: After informed consent was obtained, the patient was taken to the operating room where she was placed in the dorsal supine position. After adequate LMA general anesthesia was achieved, she was placed in the dorsal lithotomy position, and prepped and draped in the usual sterile fashion. A time-out was performed. A bivalve speculum was placed into the vagina and the anterior lip of the cervix was grasped with a single-tooth tenaculum. The cervical os was sequentially dilated until the MyoSure hysteroscope could pass easily into the endometrial cavity. Initial inspection with the hysteroscope revealed the left fallopian tube ostia, but the rest of the uterus was obscured by a large polyp. Using the MyoSure exact, the polyp was resected. There was no bleeding noted. After the polyp was resected the left fallopian tube ostia could be observed and there was an arcuate uterus with a small dip with a septum at the fundus. The instruments were removed from the uterus. The single-tooth tenaculum was removed from the anterior lip of the cervix. The bivalve speculum was removed from the vagina. Sponge, lap, and instrument counts were correct x2. The patient tolerated the procedure well, and was taken to PACU in stable condition. Complications: none Post-operative Condition: stable Disposition: PACU Plan for aftercare: Home after recovery
[2025-02-19] MEDS: OXYCODONE IR 5 MG TABLET PO (16:47)
[2025-02-19] MEDS: KETOROLAC 30 MG/ML VIAL 15 MG IV (17:05)
== END 2025-02-19 17:45 | disposition home or self-care (01) ==
PROVIDERS: Referring Provider Obstetrics & Gynecology; Visit Provider Obstetrics & Gynecology
PROC: 0UDB8ZZ Extraction of Endometrium, Via Natural or Artificial Opening Endoscopic (ICD-10-PCS; CPT 58558; principal; 2025-02-19 15:30)
DX: N95.0 Postmenopausal bleeding (principal); N85.00 Endometrial hyperplasia, unspecified
CPT/HCPCS: 58558; J1100; J1885; J2405; J2704; J3010